=== PATIENT | female | born 1940 | race Caucasian/White ===

== ENCOUNTER 2018-07-25 12:51 | Day surgery (SDC) | payer MEDICARE, OTHER ==
[~2018-07-25] VITALS: Ht 160 cm; Wt 102.3 kg
[~2018-07-25 12:51] MED LIST: ALBU90OI61 INH; CITA20 PO; CLOBETTC TOP; DICL75ER PO; IRBESARTAN300 MG PO; LEVSOD125 PO; LEVSOD150 PO; NYST100P TOP; OMEP20ER PO; VALS80 PO
== END 2018-07-25 15:02 | disposition home or self-care (01) ==
LOC: ORSCSDS 12:51
PROVIDERS: Internal Medicine Gastroenterology
PROC: 0DBM8ZX Excision of Descending Colon, Via Natural or Artificial Opening Endoscopic, Diagnostic (ICD-10-PCS; principal; 2018-07-25 14:30)
PROC: 0DBK8ZX Excision of Ascending Colon, Via Natural or Artificial Opening Endoscopic, Diagnostic (ICD-10-PCS; principal; 2018-07-25 14:30)
DX: Z12.11 Encounter for screening for malignant neoplasm of colon (principal); D12.2 Benign neoplasm of ascending colon; D12.4 Benign neoplasm of descending colon; Z86.010 Personal history of colon polyps; E03.9 Hypothyroidism, unspecified; I10 Essential (primary) hypertension; J45.909 Unspecified asthma, uncomplicated; F32.9 Major depressive disorder, single episode, unspecified; Z79.899 Other long term (current) drug therapy
CPT/HCPCS: 88305; J1980; J7120

== ENCOUNTER → 2019-03-22 | Outpatient (CLI) | payer MEDICARE, OTHER | END | disposition home or self-care (01) | LOC: LAB EV 12:08 → LAB SHORT 12:08 | DX: N39.0 Urinary tract infection, site not specified (principal) | CPT/HCPCS: 87077; 87086; 87186 ==

== ENCOUNTER 2020-04-22 11:10 | Day surgery (SDC) | payer MEDICARE, OTHER ==
[~2020-04-22] VITALS: Ht 157.5 cm; Wt 93.5 kg
[~2020-04-22 11:10] MED LIST changes: +AMLO5 PO; +LEVSOD112 PO; -LEVSOD125 PO
== END 2020-04-22 14:37 | disposition home or self-care (01) ==
LOC: ORSCSDS 11:10
PROVIDERS: Internal Medicine Gastroenterology
PROC: 0DBL8ZX Excision of Transverse Colon, Via Natural or Artificial Opening Endoscopic, Diagnostic (ICD-10-PCS; principal; 2020-04-22 12:30)
PROC: 0DBK8ZX Excision of Ascending Colon, Via Natural or Artificial Opening Endoscopic, Diagnostic (ICD-10-PCS; principal; 2020-04-22 12:30)
PROC: 0DBP8ZX Excision of Rectum, Via Natural or Artificial Opening Endoscopic, Diagnostic (ICD-10-PCS; principal; 2020-04-22 12:30)
PROC: 0DBM8ZX Excision of Descending Colon, Via Natural or Artificial Opening Endoscopic, Diagnostic (ICD-10-PCS; principal; 2020-04-22 12:30)
PROC: 0DBN8ZX Excision of Sigmoid Colon, Via Natural or Artificial Opening Endoscopic, Diagnostic (ICD-10-PCS; principal; 2020-04-22 12:30)
DX: Z86.010 Personal history of colon polyps (principal); D12.3 Benign neoplasm of transverse colon; D12.2 Benign neoplasm of ascending colon; D12.4 Benign neoplasm of descending colon; D12.5 Benign neoplasm of sigmoid colon; K62.1 Rectal polyp; K57.30 Diverticulosis of large intestine without perforation or abscess without bleeding; K64.8 Other hemorrhoids; I10 Essential (primary) hypertension; E78.5 Hyperlipidemia, unspecified; E11.9 Type 2 diabetes mellitus without complications; E03.9 Hypothyroidism, unspecified; Z79.899 Other long term (current) drug therapy
CPT/HCPCS: 88305; J2704; J7040; J7120

== ENCOUNTER → 2020-07-18 | Outpatient (CLI) | payer MEDICARE, OTHER | END | disposition home or self-care (01) | LOC: PLD 10:47 → LAB SHORT 10:47 | DX: N39.0 Urinary tract infection, site not specified (principal) | CPT/HCPCS: 87077; 87086; 87186 ==

== ENCOUNTER 2020-10-16 16:18 | Emergency (ER) | payer MEDICARE, OTHER ==
[~2020-10-16] VITALS: Ht 160 cm; Wt 94.8 kg
== END 2020-10-16 18:57 | disposition home or self-care (01) ==
LOC: ER 16:18
DX: S00.33XA Contusion of nose, initial encounter (principal); R09.81 Nasal congestion; I10 Essential (primary) hypertension; E78.00 Pure hypercholesterolemia, unspecified; Z88.6 Allergy status to analgesic agent; Z91.040 Latex allergy status; Z88.8 Allergy status to other drugs, medicaments and biological substances; W01.0XXA Fall on same level from slipping, tripping and stumbling without subsequent striking against object, initial encounter
CPT/HCPCS: 70450; 70486; 90471; 90714; 99284-25

== ENCOUNTER 2022-04-13 09:53 | Day surgery (SDC) | payer MEDICARE, OTHER ==
[~2022-04-13] VITALS: Ht 162.6 cm; Wt 86.7 kg
[2022-04-13] MEDS ORDERED: EUTHYROX50 MCG (10:49)
[2022-04-13] MEDS ORDERED: Flonase 0.05% N16 GM (10:49)
[2022-04-13] MEDS ORDERED: OMEP20ER (10:49)
--- NOTE | 2022-04-13 11:37 | NUR ---
04/13/[address] AWARE OF ELEVATED BP. NO ORDERS GIVEN. PT VERBALIZES BEING ANXIOUS
--- NOTE | 2022-04-13 12:25 | NUR ---
04/13/22 1225 [address] 4ML NACL USED FOR POLYP REMOVAL
== END 2022-04-13 12:55 | disposition home or self-care (01) ==
LOC: ORSCSDS 09:53
PROVIDERS: Internal Medicine Gastroenterology
PROC: 0DBP8ZX Excision of Rectum, Via Natural or Artificial Opening Endoscopic, Diagnostic (ICD-10-PCS; principal; 2022-04-13 11:30)
PROC: 0DBM8ZX Excision of Descending Colon, Via Natural or Artificial Opening Endoscopic, Diagnostic (ICD-10-PCS; principal; 2022-04-13 11:30)
PROC: 0DBL8ZX Excision of Transverse Colon, Via Natural or Artificial Opening Endoscopic, Diagnostic (ICD-10-PCS; principal; 2022-04-13 11:30)
DX: K62.5 Hemorrhage of anus and rectum (principal); Z86.010 Personal history of colon polyps; D12.3 Benign neoplasm of transverse colon; D12.4 Benign neoplasm of descending colon; K62.1 Rectal polyp; K57.30 Diverticulosis of large intestine without perforation or abscess without bleeding; K64.8 Other hemorrhoids; E03.9 Hypothyroidism, unspecified; I12.9 Hypertensive chronic kidney disease with stage 1 through stage 4 chronic kidney disease, or unspecified chronic kidney disease; N18.30 Chronic kidney disease, stage 3 unspecified; E78.5 Hyperlipidemia, unspecified; J45.909 Unspecified asthma, uncomplicated; F32.A Depression, unspecified; Z79.899 Other long term (current) drug therapy
CPT/HCPCS: 88305; J0330; J0461; J2405; J2704; J7120; Q9968

== ENCOUNTER 2023-06-17 07:22 | Day surgery (SDC) | payer MEDICARE, OTHER ==
[~2023-06-17] VITALS: Ht 160 cm; Wt 86.2 kg
[~2023-06-17 07:22] MED LIST changes: -CITA20 PO; +CITALOPRAM HBR10 MG PO; +EUTHYROX50 MCG; +FLONASE ALLERG9.9 M2
[2023-06-17] MEDS ORDERED: Lactated Ringer's 1,000 ML IV ONE ×2 (07:37→08:26)
[2023-06-17] MEDS ORDERED: propofoL 50 ML IV ONE (07:37)
[2023-06-17 09:45] VITALS: BP 149/62
== END 2023-06-17 09:46 | disposition home or self-care (01) ==
LOC: ORSCSDS 07:22
PROVIDERS: Specialist
PROC: 0DBN8ZZ Excision of Sigmoid Colon, Via Natural or Artificial Opening Endoscopic (ICD-10-PCS; principal; 2023-06-17 09:00)
DX: Z12.11 Encounter for screening for malignant neoplasm of colon (principal); D12.5 Benign neoplasm of sigmoid colon; K64.8 Other hemorrhoids; K57.30 Diverticulosis of large intestine without perforation or abscess without bleeding; Z86.010 Personal history of colon polyps; I10 Essential (primary) hypertension; Z79.899 Other long term (current) drug therapy; E78.5 Hyperlipidemia, unspecified; E11.9 Type 2 diabetes mellitus without complications; E07.9 Disorder of thyroid, unspecified; F32.A Depression, unspecified
CPT/HCPCS: 82947; 88305; J2704; J7120

== ENCOUNTER 2024-01-01 01:49 | Observation (INO) | payer MEDICARE, OTHER ==
[~2024-01-01] VITALS: Ht 160 cm; Wt 84.0 kg
[~2024-01-01 01:49] MED LIST changes: -CITALOPRAM HBR10 MG PO; +Celexa20 MG PO
[2024-01-01 02:54] LABS: BASOPHILS ABSOLUTE AUTO 0.04 K/mm3 (0.00-0.23); BASOPHILS PERCENT AUTO 1 % (0-2); EOSINOPHILS ABSOLUTE AUTO 0.33 K/mm3 (0.00-0.68); EOSINOPHILS PERCENT AUTO 4 % (0-6); Hematocrit 33.6 % (33.0-51.0); Hemoglobin 11.1 g/dL (11.5-16.0); IMMATURE GRAN ABSOLUTE AUTO 0.03 K/mm3 (0.00-0.10); IMMATURE GRAN PERCENT AUTO 0 % (0-1); LYMPHOCYTES PERCENT AUTO 14 % (21-46); MONOCYTES ABSOLUTE AUTO 0.68 K/mm3 (0.16-1.47); MONOCYTES PERCENT AUTO 8 % (4-13); Mean Corpuscular Volume 94 fL (80-100); Mean Platelet Volume 8.8 fL (9.1-12.4); NEUTROPHILS ABSOLUTE AUTO 6.11 K/mm3 (1.96-9.15); NEUTROPHILS PERCENT AUTO 73 % (41-73); Platelet Count 140 K/mm3 (150-400); RDW Coefficient Variation 12.9 % (11.7-14.2); RDW Standard Deviation 44.4 fL (35.1-46.3); Red Blood Cell Count 3.58 M/mm3 (3.80-5.20); White Blood Cell Count 8.39 K/mm3 (4.00-11.30)
[2024-01-01 03:11] LABS: Albumin, Blood 3.2 g/dL (3.4-5.0); Albumin/Globulin Ratio 0.7 (0.8-1.8); Bilirubin, Total 0.3 mg/dL (0.1-1.0); Bun/Creatinine Ratio 20.3 (12.0-20.0); Calcium, Blood 9.1 mg/dL (8.5-10.1); Creatinine, Blood 1.28 mg/dL (0.40-1.00); Globulin, Blood 4.3 g/dL (2.2-4.0); Potassium, Blood 4.3 mmol/L (3.5-5.5); Total Protein, Blood 7.5 g/dL (6.4-8.2)
[2024-01-01] MEDS ORDERED: Ketorolac Tromethamine 30mg Vial IV ONE (04:15)
[2024-01-01] MEDS ORDERED: HydrALAZINE HCl 20 MG / ML 1ML Vial IV ONE (06:50)
[2024-01-01 10:59] VITALS: BP 198/65
--- NOTE | 2024-01-01 11:11 | NUR ---
NOTIFIED YESSI OF NO ORDERS IN COMPUTER. HE WILL COME SEE PATIENT AND PLACE ORDERS.
[2024-01-01] MEDS ORDERED: HydrALAZINE HCl 20 MG / ML 1ML Vial IV PRN (11:55)
[2024-01-01] MEDS ORDERED: Ondansetron 4 MG TAB PO PRN (11:55)
[2024-01-01] MEDS ORDERED: Zolpidem Tartrate 5 MG Tab PO PRN (11:55)
[2024-01-01] MEDS ORDERED: Ondansetron HCl 2 MG / ML 2ML Vial IV PRN (11:55)
[2024-01-01] MEDS ORDERED: Acetaminophen 325 MG TABLET PO PRN (11:55)
[2024-01-01] MEDS ORDERED: AmLODIPine Besylate 5 MG Tab PO SCH (12:00)
[2024-01-01 12:46] LABS: CHOL/HDL RATIO 3.2; Cholesterol 156 mg/dL (50-200); Free Thyroxine 1.16 ng/dL (0.70-1.60); HDL Cholesterol 49 mg/dL (>39); LDL/HDL RATIO 1.9; Low Density Lipoprotein Chol 94 mg/dL (0-110); Triglycerides 63 mg/dL (30-160); Very Low Density Lipoprot Chol 12 mg/dL (6-32)
[2024-01-01 13:31] VITALS: BP 171/46
[2024-01-01 14:05] VITALS: BP 152/57
--- NOTE | 2024-01-01 14:23 | NUR ---
NOTIFIED BY VOCATIONAL TECHNICAL EDUCATION TEACHER THAT PATIENTS HR IS RUNNING IN THE 40'S. VITAL SIGNS CHECKED. PT DENIES ANY CHANGE IN HOW SHE IS FEELING. PT INSTRUCTED TO NOTIFY STAFF OF ANY CHANGE IN HOW SHE IS FEELING
--- NOTE | 2024-01-01 14:35 | NUR ---
CALL FROM TELE: HR SUSTAINING MID-40s WITH JUNCTIONAL RHYTHM AND BBB. DR. DICKSON NOTIFIED. PATIENT IS ASYMPTOMATIC, CONTINUE TO MONITOR RHYTHM BY TELEMETRY. PT'S SON, ED, AT BEDSIDE; NOTIFIED TO CALL NURSE IF ANY DISTINCT CHANGES NOTED.
[2024-01-01 14:36] VITALS: BP 165/54
[2024-01-01] MEDS ORDERED: OLME20 PO (19:37)
[2024-01-01 20:31] VITALS: BP 156/54
--- NOTE | 2024-01-01 20:48 | NUR ---
DAY SHIFT SUMMARY: A&Ox4. PLEASANT AND COOPERATIVE WITH CARE. SON AND AT BEDSIDE FOR MOST OF DAY AFTER ADMIT. PATIENT SLEEPING MOST OF DAY AFTER ADMIT. SBP >160 WHILE DBP REMAINS <60. HR <60 MUCH OF DAY, DROPPING LOW 42-46bpm, THOUGH REMAINED ASYMPTOMATIC. NO C/O PAIN OR DISCOMFORT IN WRIST OR FOOT. STAT HEAD CT DONE AND YIELDED RESULTS WNL. URGENT ECHO ADEQUATE EF. MEDS WHOLE WITH FLUIDS. SBA c AMBULATION. STRUGGLES WITH WALKER SECONDARY TO LEFT HAND/WRIST PAIN/INJURY. NEURO CHECKS WNL; NO NEURO DEFICITS. SKIN WITH SCATTERED BRUISING IN VARIOUS STAGES OF HEALING CONSTITENT WITH RECURRENT FALLS REPORTED. REPORT TO ONCOMING RN.
[2024-01-02 02:29] VITALS: BP 140/57
--- NOTE | 2024-01-02 04:40 | NUR ---
SERVICE LINE LAYER SUMMARY PT IS 83 Y/O FEMALE; DNR. ADMIT FOR CHEST PAIN. PT IS A/OX3; PLEASANT AND COOPERATIVE. PT AT BEDSIDE T/O THE NIGHT. PT CONTINUES TO COMPLAIN OF "" FEELING IN LEFT HAND/WRIST; PT REPORTS WRIST IS PAINFUL--GAVE TYLENOL WITH GOOD EFFECT. PT BOOT TO RIGHT FOOT IN PLACE FOR METATARSAL FX. BOOD REMOVED OVERNIGHT WHILE PT IN BED. PT SCHEDULED TO HAVE FOLLOWUP THIS WITH ORTHO. PT IS ABLE TO MAKE NEEDS KNOWN (WITH ASSIST OF ). PT CT NEGATIVE FOR STROKE. PT NEURO ASSESSMENTS ARE UNREMARKABLE. PT DENIES CHEST PAIN T/O SHIFT. PT IS ON TELE; PHONE CALL FROM DELILAH RODRIGUEZ [phone] TO REPORT PT MARCELLO WITH BRIEF DIP INTO THE 30'S. VITALS OBTAINED--BLOOD PRESSURE WAS 140/57, HR 41, O2 97%; PT DENIES SOB, CHEST PAIN, DIZZINESS; PT ASYMPTOMATIC UPON ASSESSMENT. CONTINUED TO MONITOR T/O SHIFT WITH NO ADDITIONAL EVENTS/CONCERNS. PT IS ORIENTED TO CALL LIGHT. BED ALARM IN PLACE. PT IS AMBULATING WITH 1 ASSIST AND GB TO THE BATHROOM. PT HAS RECENT HX OF MULTIPLE FALLS AND OVERESTIMATES ABILITY.
[2024-01-02] MEDS ORDERED: Levothyroxine Sodium 0.1 MG Tab PO SCH (06:00)
[2024-01-02 07:09] VITALS: BP 195/59
[2024-01-02] MEDS ORDERED: HydroCHLOROthiazide 25 mg Tab PO SCH (09:00)
[2024-01-02] MEDS ORDERED: Citalopram Hydrobromide 10 MG TAB PO SCH (09:00)
[2024-01-02] MEDS ORDERED: Heparin Sodium,Porcine 5,000 UNIT/0.5 ML SDV SC SCH (09:00)
[2024-01-02] MEDS ORDERED: HydroCHLOROthiazide 25 mg Tab PO ONE ×2 (10:00→12:10)
[2024-01-02 10:28] VITALS: BP 144/50
--- NOTE | 2024-01-02 11:30 | NUR ---
SPOKE WITH DR. CAN REGARDING ELEVATED SBP, LOW DBP AND HR IN THE 40'S WITH A DROP TO THE 30'S PER NOC RN. TELE IN PLACE. PER DR. CAN [facility] WAS HELD R/T BRADYCARDIA, ADDITIONAL DOSE OF ORETIC ORDERED BY DR. CAN FOR BLOOD PRESSURE.
[2024-01-02 12:16] VITALS: BP 181/57
[2024-01-02] MEDS ORDERED: Losartan Potassium 50 MG Tab PO ONE (14:45)
[2024-01-02] MEDS ORDERED: Losartan Potassium 50 MG Tab PO SCH (15:00)
[2024-01-02 15:24] VITALS: BP 181/51
[2024-01-02 15:36] LABS: Source, Urine Clean Catch
[2024-01-02 15:41] LABS: Appearance, Urine Clear (Clear); Bilirubin, Urine Neg (Neg); Blood, Urine 1+ (Neg); Glucose Qualitative, Urine Neg (Neg); Ketones, Urine Neg (Neg); Leukocyte Esterase, Urine 3+ (Neg); Nitrite, Urine Pos (Neg); Protein, Urine Neg (Neg); Urobilinogen, Urine NORM (Normal)
[2024-01-02 15:51] LABS: Color, Urine Pale Yellow (P-Yellow)
[2024-01-02 15:52] LABS: Bacteria Many /hpf; Squamous Epithelial Cells Few /hpf (Few)
[2024-01-02] MEDS ORDERED: CefTRIAXone Sodium 1,000 MG in NS 100 ML IV SCH (17:00)
[2024-01-02 19:38] VITALS: BP 173/52
--- NOTE | 2024-01-02 19:47 | NUR ---
SHIFT SUMMARY PT'S BP HAS BEEN SOMEWHAT ELEVATED T/O THE DAY BUT HAS RESPONDED TO HYDRALAZINE AND COZAAR. PT'SL WRIST PAIN HAS IMPORVED, SHE IS STILL UNABLE TO FULLY CLOSE HER HAND BUT PAIN HAS DECREASED. PT IS A SBA WITH WALKER, BED ALARM HAS BEEN IN PLACE SINCE PT IS FORGETFUL. BEDSIDE REPORT GIVEN TO SWAPNA SALMERON.
[2024-01-03 03:01] VITALS: BP 184/60
[2024-01-03 05:05] LABS: BASOPHILS ABSOLUTE AUTO 0.04 K/mm3 (0.00-0.23); BASOPHILS PERCENT AUTO 1 % (0-2); EOSINOPHILS PERCENT AUTO 7 % (0-6); Hemoglobin 11.4 g/dL (11.5-16.0); IMMATURE GRAN ABSOLUTE AUTO 0.02 K/mm3 (0.00-0.10); IMMATURE GRAN PERCENT AUTO 0 % (0-1); LYMPHOCYTES ABSOLUTE AUTO 1.48 K/mm3 (0.84-5.20); LYMPHOCYTES PERCENT AUTO 33 % (21-46); MONOCYTES ABSOLUTE AUTO 0.55 K/mm3 (0.16-1.47); MONOCYTES PERCENT AUTO 12 % (4-13); Mean Corpuscular HGB 31.6 pg (26.0-34.0); Mean Corpuscular HGB Conc 33.5 g/dL (31.5-36.5); Mean Corpuscular Volume 94 fL (80-100); NEUTROPHILS ABSOLUTE AUTO 2.16 K/mm3 (1.96-9.15); NEUTROPHILS PERCENT AUTO 48 % (41-73); Platelet Count 148 K/mm3 (150-400); RDW Coefficient Variation 12.8 % (11.7-14.2); RDW Standard Deviation 44.3 fL (35.1-46.3); Red Blood Cell Count 3.61 M/mm3 (3.80-5.20); White Blood Cell Count 4.55 K/mm3 (4.00-11.30)
[2024-01-03 05:39] LABS: Albumin, Blood 2.9 g/dL (3.4-5.0); Albumin/Globulin Ratio 0.7 (0.8-1.8); Bilirubin, Total 0.3 mg/dL (0.1-1.0); Bun/Creatinine Ratio 19.7 (12.0-20.0); Calcium, Blood 9.2 mg/dL (8.5-10.1); Creatinine, Blood 1.22 mg/dL (0.40-1.00); Globulin, Blood 4.1 g/dL (2.2-4.0); Potassium, Blood 4.1 mmol/L (3.5-5.5)
--- NOTE | 2024-01-03 05:51 | NUR ---
REGIONAL TELECOMMUNICATIONS SPECIALIST SUMMARY PT A/OX3. NO ACUTE CHANGES. PT AT BEDSIDE. PT () ABLE TO MAKE NEEDS KNOWN. CALL LIGHT ACCESSIBLE. PT AM BLOOD PRESSURE ELEVATED SYS IN THE 180'S; MED W/IV HYDRALAZINE. PT ON TELE; PT CONTINUES TO SUSTAIN IN THE 40'S. PT DENIES CP AND PRESENTS ASYMPTOMATIC.
[2024-01-03 08:05] VITALS: BP 145/57
[2024-01-03] MEDS ORDERED: Polyethylene Glycol 3350 17 gm PO PRN (09:00)
[2024-01-03] MEDS ORDERED: HydroCHLOROthiazide 25 mg Tab PO SCH (09:00)
[2024-01-03] MEDS ORDERED: AmLODIPine Besylate 5 MG Tab PO SCH (09:00)
[2024-01-03] MEDS ORDERED: Losartan Potassium 50 MG Tab PO SCH (09:00)
[2024-01-03] MEDS ORDERED: Docusate Sodium/Senna 1 Tab PO PRN (09:00)
[2024-01-03 10:12] VITALS: BP 162/63
[2024-01-03 11:58] VITALS: BP 148/63
[2024-01-03 14:33] VITALS: BP 179/56
[2024-01-03 14:42] VITALS: BP 138/96
[2024-01-03] MEDS ORDERED: CEFP200 PO (15:06)
[2024-01-03] MEDS ORDERED: HYDCHL25 PO (15:06)
[2024-01-03] MEDS ORDERED: AMLO5 PO (15:06)
--- NOTE | 2024-01-03 15:53 | NUR ---
DISCHARGE PT DISCHARGED AT 1526. PT & HER , ED, EDUCATED ON NEW MEDICATIONS AND FOLLOW UP APPOINTMENTS NEEDED. DR. CAN NOTIFIED OF LAST BP PRIOR TO DC. RIGHT ARM IS READING LESS THAN LEFT ARM. NEW MEDS SENT TO [facility]. PT AND ED STATED THEY HAVE NO FURTHER QUESTIONS AT TIME OF DC. IV REMOVED & INTACT. PT WHEELED OUT BY AIDE & DRIVEN HOME BY .
--- NOTE | 2024-01-04 09:51 | NUR ---
DISCHARGE FAMILY RETURNED D/T [facility] NOT RECEIVING PT PERSCRIPTIONS. CALLED TO [facility] DIRECTLY. REFAXED DISCHARGE ORDERS WELL. CARE ONGOING.
== END 2024-01-03 15:26 | disposition home or self-care (01) ==
LOC: ER 01:49 → MEDS 02:00
PROVIDERS: Internal Medicine; Student in an Organized Health Care Education/Training Program; ADMIT Internal Medicine
DX: I16.0 Hypertensive urgency (principal); I12.9 Hypertensive chronic kidney disease with stage 1 through stage 4 chronic kidney disease, or unspecified chronic kidney disease; E11.22 Type 2 diabetes mellitus with diabetic chronic kidney disease; N18.30 Chronic kidney disease, stage 3 unspecified; G30.9 Alzheimer's disease, unspecified; F02.80 Dementia in other diseases classified elsewhere, unspecified severity, without behavioral disturbance, psychotic disturbance, mood disturbance, and anxiety; E03.9 Hypothyroidism, unspecified; F32.9 Major depressive disorder, single episode, unspecified; E78.5 Hyperlipidemia, unspecified; Z88.5 Allergy status to narcotic agent; Z88.8 Allergy status to other drugs, medicaments and biological substances; Z91.040 Latex allergy status; Z79.899 Other long term (current) drug therapy; Z66 Do not resuscitate
CPT/HCPCS: 36415; 70450; 71046; 73100; 80053; 80061; 81001; 83690; 83880; 84439; 84443; 84484; 85025; 87077; 87086; 87186; 93005; 93010; 93306; 96365; 96372; 96374-59; 96375; 96375-59; 96376; 97110; 97110-CO; 97116; 97162; 97165; 97530; 97535-CO; 99285-25; A9270; G0378; J0360; J0696; J1644; J1885

== ENCOUNTER → 2024-02-03 | Outpatient (CLI) | payer OTHER ==
[~2024-02-03] MED LIST changes: +CEFP200 PO; +HYDCHL25 PO; +OLME20 PO
[2024-02-03 19:18] LABS: BASOPHILS ABSOLUTE AUTO 0.03 K/mm3 (0.00-0.23); BASOPHILS PERCENT AUTO 0 % (0-2); EOSINOPHILS ABSOLUTE AUTO 0.04 K/mm3 (0.00-0.68); EOSINOPHILS PERCENT AUTO 1 % (0-6); Hematocrit 33.2 % (33.0-51.0); Hemoglobin 11.2 g/dL (11.5-16.0); IMMATURE GRAN ABSOLUTE AUTO 0.03 K/mm3 (0.00-0.10); IMMATURE GRAN PERCENT AUTO 0 % (0-1); LYMPHOCYTES PERCENT AUTO 20 % (21-46); MONOCYTES ABSOLUTE AUTO 0.66 K/mm3 (0.16-1.47); MONOCYTES PERCENT AUTO 9 % (4-13); Mean Corpuscular HGB Conc 33.7 g/dL (31.5-36.5); Mean Corpuscular Volume 92 fL (80-100); Mean Platelet Volume 8.8 fL (9.1-12.4); NEUTROPHILS PERCENT AUTO 70 % (41-73); Platelet Count 209 K/mm3 (150-400); RDW Coefficient Variation 12.4 % (11.7-14.2); RDW Standard Deviation 42.1 fL (35.1-46.3); Red Blood Cell Count 3.61 M/mm3 (3.80-5.20); White Blood Cell Count 7.16 K/mm3 (4.00-11.30)
[2024-02-03 19:57] LABS: Very Low Density Lipoprot Chol 18 mg/dL (6-32)
[2024-02-03 20:22] LABS: Alanine Aminotransfer (ALT/SGP 16 U/L (12-78); Albumin, Blood 3.5 g/dL (3.4-5.0); Albumin/Globulin Ratio 0.8 (0.8-1.8); Alk Phos 52 U/L (50-136); Anion Gap 11 mmol/L (3-11); Aspartate Aminotrans (AST/SGOT 13 U/L (12-37); Bilirubin, Total 0.2 mg/dL (0.1-1.0); Blood Urea Nitrogen 50 mg/dL (8-24); Bun/Creatinine Ratio 32.1 (12.0-20.0); CHOL/HDL RATIO 3.2; CO2, Blood 25 mmol/L (21-32); Calcium, Blood 8.9 mg/dL (8.5-10.1); Chloride, Blood 101 mmol/L (98-108); Cholesterol 187 mg/dL (50-200); Creatinine, Blood 1.56 mg/dL (0.40-1.00); Globulin, Blood 4.3 g/dL (2.2-4.0); Glomerular Filtration Rate 33 (60-); Glucose, Blood 84 mg/dL (70-99); HDL Cholesterol 59 mg/dL (>39); LDL/HDL RATIO 1.9; Low Density Lipoprotein Chol 110 mg/dL (0-110); Potassium, Blood 4.1 mmol/L (3.5-5.5); Sodium, Blood 133 mmol/L (136-145); Total Protein, Blood 7.8 g/dL (6.4-8.2); Triglycerides 90 mg/dL (30-160)
[2024-02-06 11:37] LABS: RA, SEMIQUANTITATIVE 32 IU/ml (<8); Rheumatoid Factor, Serum Positive (Negative)
[2024-02-06 18:43] LABS: ANTI-NUCLEAR AB ANA,IGG ELISA Detected (None Detected)
[2024-02-09 05:30] LABS: ANTINUCLEAR AB (ANA),HEP-2,IGG <1:80 (<1:80); CYTOPLASM PATTERN AMA
== END | disposition home or self-care (01) ==
LOC: LAB SHORT 18:43 → LAB 18:43
PROVIDERS: Nurse Practitioner Family
DX: E78.2 Mixed hyperlipidemia (principal); M25.50 Pain in unspecified joint; E03.9 Hypothyroidism, unspecified
CPT/HCPCS: 80053; 80061; 84443; 85025; 85651; 86430; 86431

== ENCOUNTER → 2024-05-10 | Outpatient (CLI) | payer OTHER ==
[2024-05-10 18:53] LABS: BASOPHILS ABSOLUTE AUTO 0.03 K/mm3 (0.00-0.23); BASOPHILS PERCENT AUTO 1 % (0-2); EOSINOPHILS ABSOLUTE AUTO 0.14 K/mm3 (0.00-0.68); EOSINOPHILS PERCENT AUTO 3 % (0-6); Hematocrit 36.5 % (33.0-51.0); IMMATURE GRAN ABSOLUTE AUTO 0.02 K/mm3 (0.00-0.10); IMMATURE GRAN PERCENT AUTO 0 % (0-1); LYMPHOCYTES ABSOLUTE AUTO 0.57 K/mm3 (0.84-5.20); LYMPHOCYTES PERCENT AUTO 11 % (21-46); MONOCYTES ABSOLUTE AUTO 0.35 K/mm3 (0.16-1.47); MONOCYTES PERCENT AUTO 7 % (4-13); Mean Corpuscular HGB 31.5 pg (26.0-34.0); Mean Corpuscular HGB Conc 32.9 g/dL (31.5-36.5); Mean Corpuscular Volume 96 fL (80-100); Mean Platelet Volume 8.9 fL (9.1-12.4); NEUTROPHILS PERCENT AUTO 78 % (41-73); Platelet Count 123 K/mm3 (150-400); RDW Coefficient Variation 14.2 % (11.7-14.2); RDW Standard Deviation 49.8 fL (35.1-46.3); Red Blood Cell Count 3.81 M/mm3 (3.80-5.20); White Blood Cell Count 5.11 K/mm3 (4.00-11.30)
[2024-05-10 19:35] LABS: Albumin/Globulin Ratio 0.9 (0.8-1.8); Bilirubin, Total 0.8 mg/dL (0.1-1.0); Calcium, Blood 8.6 mg/dL (8.5-10.1); Creatinine, Blood 1.44 mg/dL (0.40-1.00); Globulin, Blood 3.2 g/dL (2.2-4.0); Potassium, Blood 3.9 mmol/L (3.5-5.5); Total Protein, Blood 6.2 g/dL (6.4-8.2)
[2024-05-13 14:59] LABS: ANTI-NUCLEAR AB ANA,IGG ELISA Detected (None Detected)
[2024-05-13 15:04] LABS: CYCLIC CITRULLINATED PEP,IGG/A >250 Units (0-19)
[2024-05-14 20:35] LABS: ANTINUCLEAR AB (ANA),HEP-2,IGG <1:80 (<1:80); CYTOPLASM PATTERN AMA
== END ==
LOC: LAB 16:48 → LAB SHORT 16:48
PROVIDERS: Internal Medicine Rheumatology
DX: M15.9 Polyosteoarthritis, unspecified (principal)
CPT/HCPCS: 80053; 85025; 85651; 86038; 86039; 86200

== ENCOUNTER → 2024-05-14 | Outpatient (CLI) | payer OTHER ==
[~2024-05-14] MED LIST changes: +Amoxicillin500 MG PO; +CITALOPRAM HBR20 M9 PO; +CYMBALTA30 M2 PO; +HYDROCODONE-AC1 EA19 PO; +OLMESARTAN MEDO20 MG PO
== END ==
LOC: LAB SHORT 16:27 → LAB 16:27
DX: J02.9 Acute pharyngitis, unspecified (principal)
CPT/HCPCS: 87081; 87147

== ENCOUNTER 2024-05-19 12:27 | Observation (INO) | payer OTHER ==
[~2024-05-19] VITALS: Ht 165.1 cm; Wt 74.2 kg
[~2024-05-19 12:27] MED LIST changes: -Amoxicillin500 MG PO; -CITALOPRAM HBR20 M9 PO; -CYMBALTA30 M2 PO; -HYDROCODONE-AC1 EA19 PO; -OLMESARTAN MEDO20 MG PO
[2024-05-19 13:00] LABS: Source, Urine Fem Cath
[2024-05-19 13:03] LABS: Bilirubin, Urine Neg (Neg); Blood, Urine Neg (Neg); Glucose Qualitative, Urine Neg (Neg); Ketones, Urine Neg (Neg); Leukocyte Esterase, Urine Neg (Neg); Nitrite, Urine Neg (Neg); Protein, Urine 1+ (Neg); Urobilinogen, Urine NORM (Normal)
[2024-05-19 13:03] LABS: BASOPHILS ABSOLUTE AUTO 0.04 K/mm3 (0.00-0.23); BASOPHILS PERCENT AUTO 1 % (0-2); EOSINOPHILS ABSOLUTE AUTO 0.25 K/mm3 (0.00-0.68); EOSINOPHILS PERCENT AUTO 4 % (0-6); Hemoglobin 12.2 g/dL (11.5-16.0); IMMATURE GRAN ABSOLUTE AUTO 0.06 K/mm3 (0.00-0.10); IMMATURE GRAN PERCENT AUTO 1 % (0-1); LYMPHOCYTES ABSOLUTE AUTO 0.86 K/mm3 (0.84-5.20); LYMPHOCYTES PERCENT AUTO 13 % (21-46); MONOCYTES ABSOLUTE AUTO 0.48 K/mm3 (0.16-1.47); MONOCYTES PERCENT AUTO 7 % (4-13); Mean Corpuscular HGB 31.7 pg (26.0-34.0); Mean Corpuscular HGB Conc 33.9 g/dL (31.5-36.5); Mean Corpuscular Volume 94 fL (80-100); Mean Platelet Volume 7.7 fL (9.1-12.4); NEUTROPHILS ABSOLUTE AUTO 5.03 K/mm3 (1.96-9.15); NEUTROPHILS PERCENT AUTO 75 % (41-73); Platelet Count 242 K/mm3 (150-400); RDW Coefficient Variation 13.5 % (11.7-14.2); RDW Standard Deviation 46.4 fL (35.1-46.3); Red Blood Cell Count 3.85 M/mm3 (3.80-5.20); White Blood Cell Count 6.72 K/mm3 (4.00-11.30)
[2024-05-19 13:05] LABS: Appearance, Urine Clear (Clear); Color, Urine Yellow (P-Yellow)
[2024-05-19 13:23] LABS: Albumin, Blood 2.6 g/dL (3.4-5.0); Albumin/Globulin Ratio 0.6 (0.8-1.8); Bilirubin, Total 0.5 mg/dL (0.1-1.0); Bun/Creatinine Ratio 24.4 (12.0-20.0); Calcium, Blood 9.6 mg/dL (8.5-10.1); Creatinine, Blood 1.23 mg/dL (0.40-1.00); Globulin, Blood 4.6 g/dL (2.2-4.0); Potassium, Blood 4.3 mmol/L (3.5-5.5); Total Protein, Blood 7.2 g/dL (6.4-8.2)
[2024-05-19] MEDS ORDERED: Magnesium Hydroxide Conc 10 ML UDC PO ONE ×2 (14:00→16:10)
[2024-05-19] MEDS ORDERED: NS 1,000 ML IV SCH ×2 (14:40→17:10)
[2024-05-19] MEDS ORDERED: Acetaminophen 500 MG Tab PO ONE (16:25)
[2024-05-19] MEDS ORDERED: Ondansetron HCl 2 MG / ML 2ML Vial IV PRN (17:10)
[2024-05-19] MEDS ORDERED: FLU VACC TS2024-25(6MOS UP)/PF 45 MCG/0.5 ML SYRINGE IM PRN (17:10)
[2024-05-19] MEDS ORDERED: OxyCODONE 5 mg/Acetamin 325 mg TABLET PO PRN (17:15)
[2024-05-19] MEDS ORDERED: OxyCODONE 5 mg/Acetamin 325 mg TABLET PO ONE (18:00)
[2024-05-19 19:29] LABS: Influenza A, PCR NEGATIVE (NEGATIVE); Influenza B, PCR NEGATIVE (NEGATIVE); Resp Syncytial Virus, PCR NEGATIVE (NEGATIVE); SARS-Cov-2 (COVID-19) PCR, MMC NEGATIVE (NEGATIVE)
[2024-05-19] MEDS ORDERED: HYDROCODONE-AC1 EA19 PO (20:49)
[2024-05-19] MEDS ORDERED: Amoxicillin500 MG PO (20:49)
[2024-05-19] MEDS ORDERED: CYMBALTA30 M2 PO (20:50)
[2024-05-19] MEDS ORDERED: AmLODIPine Besylate 5 MG Tab PO SCH (21:00)
[2024-05-19] MEDS ORDERED: Sennosides 8.6 MG Tab PO SCH (21:00)
[2024-05-19] MEDS ORDERED: Losartan Potassium 25 MG Tab PO SCH (22:00)
[2024-05-19 22:31] VITALS: BP 180/88
[2024-05-20] MEDS ORDERED: CITALOPRAM HBR20 M9 PO
[2024-05-20] MEDS ORDERED: OLMESARTAN MEDO20 MG PO (00:02)
[2024-05-20 04:07] VITALS: BP 173/75
[2024-05-20] MEDS ORDERED: Levothyroxine Sodium 0.112 MG Tab PO SCH (06:00)
--- NOTE | 2024-05-20 06:19 | NUR ---
SHIFT SUMMARY PT ARRIVED AT 2210. PT SEEMS CONFUSED. A&O TO SELF AND SITUATION, BUT NOT DATE OR SITUATION. 0420, WHILE TAKING PT VITALS, EDUCATED PT ON PUREWIC WHEN SHE EXPRESSED NEED TO VOID. PT ABLE TO VOID SUCCESSFULLY. 0600, PT CALLED FOR PAIN MEDS, MEDICATED FOR PAIN PER EMAR
[2024-05-20 07:18] VITALS: BP 157/75
[2024-05-20] MEDS ORDERED: AmLODIPine Besylate 5 MG Tab PO SCH (09:00)
[2024-05-20] MEDS ORDERED: Citalopram Hydrobromide 20 MG Tab PO SCH (09:00)
[2024-05-20] MEDS ORDERED: Enoxaparin 40 MG/0.4 ML SYR SC SCH (09:00)
[2024-05-20] MEDS ORDERED: Docusate Sodium 100 MG Cap PO SCH (09:00)
[2024-05-20] MEDS ORDERED: Losartan Potassium 25 MG Tab PO SCH (09:00)
[2024-05-20 09:42] LABS: BASOPHILS ABSOLUTE AUTO 0.04 K/mm3 (0.00-0.23); BASOPHILS PERCENT AUTO 1 % (0-2); EOSINOPHILS ABSOLUTE AUTO 0.28 K/mm3 (0.00-0.68); EOSINOPHILS PERCENT AUTO 4 % (0-6); Hematocrit 31.8 % (33.0-51.0); Hemoglobin 10.5 g/dL (11.5-16.0); IMMATURE GRAN ABSOLUTE AUTO 0.05 K/mm3 (0.00-0.10); IMMATURE GRAN PERCENT AUTO 1 % (0-1); LYMPHOCYTES ABSOLUTE AUTO 0.75 K/mm3 (0.84-5.20); LYMPHOCYTES PERCENT AUTO 11 % (21-46); MONOCYTES PERCENT AUTO 6 % (4-13); Mean Corpuscular HGB 31.3 pg (26.0-34.0); Mean Corpuscular Volume 95 fL (80-100); Mean Platelet Volume 7.8 fL (9.1-12.4); NEUTROPHILS ABSOLUTE AUTO 5.13 K/mm3 (1.96-9.15); NEUTROPHILS PERCENT AUTO 77 % (41-73); Platelet Count 207 K/mm3 (150-400); RDW Coefficient Variation 13.4 % (11.7-14.2); RDW Standard Deviation 46.6 fL (35.1-46.3); Red Blood Cell Count 3.36 M/mm3 (3.80-5.20); White Blood Cell Count 6.65 K/mm3 (4.00-11.30)
[2024-05-20 10:13] LABS: Bun/Creatinine Ratio 25.5 (12.0-20.0); Calcium, Blood 8.3 mg/dL (8.5-10.1); Creatinine, Blood 0.98 mg/dL (0.40-1.00); Thyroid Stimulating Hormone 18.5 uIU/mL (0.360-4.800)
[2024-05-20 15:08] VITALS: BP 147/66
--- NOTE | 2024-05-20 16:52 | NUR ---
Shift Summary Ms Reyes is very forgetful, frequently forgetting where she is and verbalising confusion at her situation. She is able to tell me her name and follow some simple instructions. She ate about 15% of her lunch with a lot of encouragement and being fed. She has drank PO fluids with a lot of encouragement in small sips throughout the day. She was helped up to the chair 2 person assist back to bed when she was dozing in the chair and drooping forwards. She c/o pain to her back and her knees. She verbalises discomfort when she is repositioned, she has verbalised relief after repositioning and also after pain medications. She has been able to tell me that she wants pain medications or decline them and tell me she is comfortable after repositioning. She has flatus but has not had a BM for 4-5 days per family. This was discussed with Dr Silva this morning. Ms Reyes lives with her and, according to family, also lives with a son who is blind and deaf. Her son Ed verbalised concern for all three family members living in this situation and family are discussing alternative arrangements. Daughter Nasra opened the conversation about hospice care for Ms Reyes. Palliative care nurse Susu is aware that this is a conversation that the family would like to have. Family have been present throughout the day. Bed low, call light in reach, bed alarm on.
[2024-05-20 19:13] VITALS: BP 151/67
[2024-05-21 04:47] VITALS: BP 174/74
[2024-05-21 06:24] LABS: BASOPHILS ABSOLUTE AUTO 0.05 K/mm3 (0.00-0.23); BASOPHILS PERCENT AUTO 1 % (0-2); EOSINOPHILS ABSOLUTE AUTO 0.24 K/mm3 (0.00-0.68); EOSINOPHILS PERCENT AUTO 4 % (0-6); Hematocrit 29.9 % (33.0-51.0); Hemoglobin 9.8 g/dL (11.5-16.0); IMMATURE GRAN ABSOLUTE AUTO 0.06 K/mm3 (0.00-0.10); IMMATURE GRAN PERCENT AUTO 1 % (0-1); LYMPHOCYTES ABSOLUTE AUTO 0.61 K/mm3 (0.84-5.20); LYMPHOCYTES PERCENT AUTO 10 % (21-46); MONOCYTES ABSOLUTE AUTO 0.47 K/mm3 (0.16-1.47); MONOCYTES PERCENT AUTO 8 % (4-13); Mean Corpuscular HGB 30.7 pg (26.0-34.0); Mean Corpuscular HGB Conc 32.8 g/dL (31.5-36.5); Mean Corpuscular Volume 94 fL (80-100); Mean Platelet Volume 7.6 fL (9.1-12.4); NEUTROPHILS ABSOLUTE AUTO 4.68 K/mm3 (1.96-9.15); NEUTROPHILS PERCENT AUTO 77 % (41-73); Platelet Count 213 K/mm3 (150-400); RDW Standard Deviation 44.9 fL (35.1-46.3); Red Blood Cell Count 3.19 M/mm3 (3.80-5.20); White Blood Cell Count 6.11 K/mm3 (4.00-11.30)
[2024-05-21 06:50] LABS: Calcium, Blood 8.4 mg/dL (8.5-10.1); Creatinine, Blood 1.04 mg/dL (0.40-1.00); Potassium, Blood 3.9 mmol/L (3.5-5.5)
[2024-05-21 07:54] VITALS: BP 166/72
[2024-05-21] MEDS ORDERED: Morphine Sulfate 4 MG/1 ML Injection IV PRN (11:15)
[2024-05-21 15:30] VITALS: BP 159/78
[2024-05-21] MEDS ORDERED: Scopolamine Hydrobromide Patch TOP PRN (16:35)
[2024-05-21] MEDS ORDERED: LORazepam 0.5 MG Tab PO PRN (16:35)
[2024-05-21] MEDS ORDERED: Atropine Sulfate 1% Opth Soln 2ML BTL SL PRN (16:35)
[2024-05-21] MEDS ORDERED: Morphine Sulfate 20 MG/1ML 1 ML Oral Syringe SL PRN (16:35)
[2024-05-21] MEDS ORDERED: Acetaminophen 650 MG Supp PR PRN (16:35)
--- NOTE | 2024-05-21 16:56 | NUR ---
GOALS OF CARE CONVERSATION AT PT'S BEDSIDE WITH SPOUSE, ED. PT IS ORIENTED TO SELF ONLY. ED REPORTS PT HAS ONLY EATEN BITES AND SIPS FOR THE LAST 2 WEEKS. PT'S SON ASKED BEDSIDE RN NOT TO GIVE HTN RX. PHYSICAL TX ATTEMPTED VISIT TODAY. ED ASKED THERAPY TO DISCONTINUE SERVICE. ED REPORTS TO THIS PC RN, HE WANTS [facility] TO BE COMFORTABLE AND BE AT HOME. EDUCATION ON HOSPICE SERVICES PROVIDED IN THE HOME. ED DOES NOT HAVE A PREFFERENCE ON HOSPICE AGENCY. TELEPHONE ORDER OBTAINED FROM PROVIDER TO CHANGE CARE STATUS TO COMFORT CARE AND D/C HOME WITH HOSPICE. PRIMARY RN AND CM UPDATED. EQUIPMENT NEEDED: HOSPITAL BED, 1/2 RAILS, AIR BED OVERLAY (WING) AND OVERBED TABLE.
--- NOTE | 2024-05-21 17:17 | NUR ---
Met with pt's son and daughter at bedside. Answered questions regarding hospice care. They state they have been nervous, given they both live hours away from their parents. Once they understood that a affiliate manager and bath aide will be seeing the patient in her home routinely, they verbalize relief. Will notify CM tomorrow to resume hospice discharge.
--- NOTE | 2024-05-21 18:55 | NUR ---
SUMMARY- PT A/O X2, INTERACTIVE WITH FAMILY, REMEMBERS SOME OF HER KIDS. VERY SLEEPY THIS AM BUT AWOKEN PROGRESSIVELY THE DAY WENT ON. DEPENDANT IN CARE, TURNED Q 2, USING [employer] SYSTEM FOR INCONT. PT TOO SLEEPY FOR SOLID FOOD THIS AM BUT ABLE TO TAKE A FEW BITES OF CHICKEN AND RICE FOR DINNER. TAKING IN CLEARS WITH DIFFICULTY. SWALLOWS PILLS WHOLE WITH WATER. PALL AND SOCIAL SERVICE WORKED WITH FAMILY IN HELPING MAKE DECISIONS BEST FOR PT. PLAN IS FOR DC HOME WITH HOSPICE TOMORROW ONCE EQUIPMENT SET UP. WILL REPORT TO SWAPNA SALMERON
--- NOTE | 2024-05-22 07:27 | NUR ---
SHIFT SUMMARY ORDER ENTERED TO PLACE PT ON COMFORT CARE MEASURES. PT SLEPT THROUGH MOST OF NIGH, WAKING TO BE MEDICATED FOR PAIN. PAIN MEDICATION ADMINISTERED AND REEVALUATED. PT ABLE TO TELL THIS RN HER NAME AND MONTH OF ALFRED.
--- NOTE | 2024-05-22 19:49 | NUR ---
SUMMARY- PT ON COMFORT CARE. A/O X1-2. SLEPT MOST OF THE DAY. AWAKENS TO VERBAL STIM, VERBAL AND INTERACTIVE MOD CONFUSION. TOLERATING A FEW BITES OF SOLID FOOD WITH EACH MEAL. DRINKS CLEAR LIQ WITHOUT DIFFICULTY. ROXONOL 10MG X2 THIS SHIFT FOR S/S DISCOMFORT, ESPECIALLY WHEN TURNING PT. PLACED SANDOVAL CATH ANTICIPATING DC TOMORROW ON HOSPICE. AWAITING FOR MEDICAL EQUIPT TO BE DEILIVERED. LG FAMILY IN/OUT OF ROOM, SUPPORTIVE IN CARE. REPORTED OFF TO FAVIOLA SOLER
--- NOTE | 2024-05-23 04:22 | NUR ---
SHIFT SUMMARY PATIENT ON COMFORT CARE. ALERT TO SELF, BEDREST, SLEEPING T/O SHIFT. NO S/SX OF PAIN OR DISCOMFORT. SANDOVAL PATENT AND DRAINING TO GRAVITY. NO IV ACCESS. FAMILY IN/OUT OF ROOM FIRST FEW HOURS OF SHIFT CHANGE. STAYS OVERNIGHT REPORTING DISCHARGING HOME ON HOSPICE TODAY. CALL LIGHT IN REACH. BED IN LOWEST POSITION. WILL CONTINUE TO MONITOR UNTIL DAY SHIFT NURSE ASSUMES CARE.
[2024-05-23] MEDS ORDERED: ATROPINE 1% EY1 EACH PO (10:08)
[2024-05-23] MEDS ORDERED: LORA.5 PO (10:09)
[2024-05-23] MEDS ORDERED: MORP20L SL (10:10)
[2024-05-23] MEDS ORDERED: TRANSDERM-SCOP1 EA13 TD (10:11)
--- NOTE | 2024-05-23 10:42 | NUR ---
DISCHARGE SUMMARY PATIENT A/OX1, CONFUSED. FAMILY AT BEDSIDE. COMPLAINING FO BACK PAIN, MEDICATED PER JUL. REPOSITIONED Q2 HOURS. CHANGED INTO HOME [place] PER FAMILY REQUEST. DISCHARGING HOME ON HOSPICE, MEDICATIONS FAXED TO [facility] PER FAMILY REQUEST. CARE COORDINATO ASSISTING IN FAMILY RECIEVING MEDICATIONS [place] DISCHARGE. GURNEY TRANSPORTATION AT DISCHARGE, ASSISTED INTO [place] WITH [facility] STAFF AND TRANSPORTATION STAFF. DISCHARGE EDUCATION PROVIDED TO PATIENT'S DAUGHTER AND SPOUSE REGARDING ADMINISTRATION OF MEDICATION AND END OF LIFE PROCESS. NO OTHER CONCERNS AT TIME FO DISCHARGE.
--- NOTE | 2024-05-23 11:23 | NUR ---
Spiritual care visit conducted. Upon request of the family Diabetes Manager Osman and I visit the patient. We conduct a life review of the patient as they explain that she will go home on hospice and then about her life and personality. We visit very briefly with the patient and then provided prayer with the family and the patient. Family voice their appreciation while the patient went back to resting.
== END 2024-05-23 10:08 | disposition hospice, home (50) ==
LOC: ER 12:27 → ERHOLD 12:28 → MEDS 12:28
PROVIDERS: Student in an Organized Health Care Education/Training Program; ADMIT Internal Medicine
DX: R53.1 Weakness (principal); R62.7 Adult failure to thrive; E03.9 Hypothyroidism, unspecified; E66.9 Obesity, unspecified; G30.9 Alzheimer's disease, unspecified; F02.80 Dementia in other diseases classified elsewhere, unspecified severity, without behavioral disturbance, psychotic disturbance, mood disturbance, and anxiety; I12.9 Hypertensive chronic kidney disease with stage 1 through stage 4 chronic kidney disease, or unspecified chronic kidney disease; N18.30 Chronic kidney disease, stage 3 unspecified; M06.842 Other specified rheumatoid arthritis, left hand; M06.841 Other specified rheumatoid arthritis, right hand; J45.20 Mild intermittent asthma, uncomplicated; Z68.27 Body mass index [BMI] 27.0-27.9, adult; Z66 Do not resuscitate; Z88.8 Allergy status to other drugs, medicaments and biological substances; Z88.5 Allergy status to narcotic agent; Z91.040 Latex allergy status
CPT/HCPCS: 0241U; 36415; 51702; 80048; 80053; 84443; 85025; 93005; 93010; 96360; 96361; 96372; 97110; 97112; 97161; 99285-25; A9270; G0378; J1650; J7030; P9612